=== PATIENT | female | born 2000 | race Caucasian/White ===

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

== ENCOUNTER 2020-11-27 15:58 | Emergency (ER) | payer OTHER, MEDICAID ==
[~2020-11-27] VITALS: Ht 165.1 cm; Wt 71.8 kg
[~2020-11-27 15:58] MED LIST changes: -ANEC4CRE3 TOP; -PREN1CHW4 PO
--- OUTSIDE RECORDS SUMMARY | 2020-11-27 16:12 | CCD ---
Author Author [facility] Organization [facility] Address Unknown Phone Unavailable Care Team Providers Care Blue Print Control Clerk Name Role Phone Macsherry, Michaela PIPE RECOVERY SPECIALIST Unavailable Unavailable Macsherry, Michaela PIPE RECOVERY SPECIALIST Unavailable Unavailable Macsherry, Michaela PIPE RECOVERY SPECIALIST Unavailable Unavailable Macsherry, Michaela PIPE RECOVERY SPECIALIST Unavailable Unavailable Macsherry, Michaela PIPE RECOVERY SPECIALIST Unavailable Unavailable Macsherry, Michaela PIPE RECOVERY SPECIALIST Unavailable Unavailable Macsherry, Michaela PIPE RECOVERY SPECIALIST Unavailable Unavailable Macsherry, Michaela PIPE RECOVERY SPECIALIST Unavailable Unavailable Macsherry, Michaela PIPE RECOVERY SPECIALIST Unavailable Unavailable Macsherry, Michaela PIPE RECOVERY SPECIALIST Unavailable Unavailable Macsherry, Michaela PIPE RECOVERY SPECIALIST Unavailable Unavailable Macsherry, Michaela PIPE RECOVERY SPECIALIST Unavailable Unavailable Macsherry, Michaela PIPE RECOVERY SPECIALIST Unavailable Unavailable Macsherry, Michaela PIPE RECOVERY SPECIALIST Unavailable Unavailable Macsherry, Michaela PIPE RECOVERY SPECIALIST Unavailable Unavailable Macsherry, Michaela PIPE RECOVERY SPECIALIST Unavailable Unavailable Macsherry, Michaela PIPE RECOVERY SPECIALIST Unavailable Unavailable Macsherry, Michaela PIPE RECOVERY SPECIALIST Unavailable Unavailable Macsherry, Michaela PIPE RECOVERY SPECIALIST Unavailable Unavailable Macsherry, Michaela PIPE RECOVERY SPECIALIST Unavailable Unavailable Macsherry, Michaela PIPE RECOVERY SPECIALIST Unavailable Unavailable Macsherry, Michaela PIPE RECOVERY SPECIALIST Unavailable Unavailable Macsherry, Michaela PIPE RECOVERY SPECIALIST Unavailable Unavailable Macsherry, Michaela PIPE RECOVERY SPECIALIST Unavailable Unavailable JORDAN, KADEN PA Unavailable Unavailable JORDAN, KADEN PA Unavailable Unavailable JORDAN, KADEN PA Unavailable Unavailable JORDAN, KADEN PA Unavailable Unavailable JORDAN, KADEN PA Unavailable Unavailable JORDAN, KADEN PA Unavailable Unavailable JORDAN, KADEN PA Unavailable Unavailable JORDAN, KADEN PA Unavailable Unavailable JORDAN, KADEN PA Unavailable Unavailable JORDAN, KADEN PA Unavailable Unavailable JORDAN, KADEN PA Unavailable Unavailable JORDAN, KADEN PA Unavailable Unavailable JORDAN, KADEN PA Unavailable Unavailable JORDAN, KADEN PA Unavailable Unavailable JORDAN, KADEN PA Unavailable Unavailable Re-disclosure Warning The records that you are about to access may contain information from federally-assisted alcohol or drug abuse programs. If such information is present, then the following federally mandated warning applies: This information has been disclosed to you from records protected by federal confidentiality rules (42 CFR part 2). The federal rules prohibit you from making any further disclosure of this information unless further disclosure is expressly permitted by the written consent of the person to whom it pertains or as otherwise permitted by 42 CFR part 2. A general authorization for the release of medical or other information is NOT sufficient for this purpose. The Federal rules restrict any use of the information to criminally investigate or prosecute any alcohol or drug abuse patient.The records that you are about to access may contain highly sensitive health information, the redisclosure of which is protected by Article 27-F of the [place] State Public Health law. If you continue you may have access to information: Regarding HIV / AIDS; Provided by facilities licensed or operated by the [facility] Office of Mental Health; or Provided by the [facility] Office for People With Developmental Disabilities. If such information is present, then the following [facility] mandated warning applies: This information has been disclosed to you from confidential records which are protected by state law. State law prohibits you from making any further disclosure of this information without the specific written consent of the person to whom it pertains, or as otherwise permitted by law. Any unauthorized further disclosure in violation of state law may result in a fine or residential sentence or both. A general authorization for the release of medical or other information is NOT sufficient authorization for further disc losure. Family History Family Member Name Family Member Gender Family Member Status Date o f Status Description Data Source(s) Unknown Unknown Problem MEDENT ([facility]) Unknown Female Problem MEDENT ([facility] ) Encounters Encounter Providers Location Date Indications Data Source(s ) Emergency Attender: KADEN Mayer: Janeht Hennessy PIPE RECOVERY SPECIALIST EMERGENCY ROOM-ER 09/22/2012 12:48:00 PM EST - 09/22/2012 02:38:00 PM [facility] Insurance Providers Payer name Policy type / Coverage type Policy ID Covered green party ID Covered green party's relationship to gastelum Policy Gastelum Plan Information SELF PAY ONLY [id number] SP [id number] MEDICAID [id number] S [id number] [facility] BENEFITS PLAN INC [id number] SP [id number] Managed Care [facility] Community Plan P [id number] S [id number] SELF PAY UNAVAILABLE S UNAVAILA BLE [facility] MEDICAID [id number] S [id number] MEDICAID [id number] SP [id number] [facility] PLAN [facility] [id number] SP [id number] [facility] Care - [facility] P [id number] S [id number] [facility]-Medicaid [id number] ANSI-Medicaid [id number] [facility] MEDICAID [id number] S [id number] [facility] MEDICAID [facility] HMO [id number] S [id number] [facility] MEDICAID [facility] [id number] S [id number] [facility]AN [facility] [id number] SP [id number] [facility] [id number] SP [id number] [facility] P [id number] S [id number] UNHC COMMUNITY PLAN MCDO [id number] SP [id number] [facility] Terry/MCR Health Maintenance Organization (HMO) [id number] Self [id number] Medicaid O [id number] S [id number] Managed Care [facility] O [id number] S [id number] Medicaid Dental S [id number] S [id number] Managed Care - Community Plan [facility] P [id number] S [id number] Medicaid S [id number] S [id number] [facility](MCAID) O [id number] S [id number] Pupil Benefits (pr) Commercial Medicaid [place] Medigap Part B Self [facility] Community Plan Commercial [id number] Self [id number] [facility]CAID) O [id number] S [id number] MEDICAID [id number] SP [id number] BCBS [facility] HMO [id number] S [id number] Medicaid P [id number] S [id number] UN COMMUNITY PLAN MCDO [id number] SP [id number] SELF PAY UNAVAILABLE SP UNAVAILA BLE
[2020-11-27] MEDS ORDERED: PREN1CHW4 PO (16:14)
[2020-11-27] MEDS ORDERED: ACETAMINOPHEN 500 MG TAB PO ONE (16:45)
[2020-11-27] MEDS ORDERED: LIDOCAINE 4% CREAM 5GM (LMX4) TOP ONE (16:45)
--- OUTSIDE RECORDS SUMMARY | 2020-11-27 17:28 | CCD ---
Author Author [facility] Organization [facility] Address Unknown Phone Unavailable Care Team Providers Care Manager Enrollment Name Role Phone Macsherry, Michaela MAT MAN Unavailable Unavailable Macsherry, Michaela MAT MAN Unavailable Unavailable Macsherry, Michaela MAT MAN Unavailable Unavailable Macsherry, Michaela MAT MAN Unavailable Unavailable Macsherry, Michaela MAT MAN Unavailable Unavailable Macsherry, Michaela MAT MAN Unavailable Unavailable Macsherry, Michaela MAT MAN Unavailable Unavailable Macsherry, Michaela MAT MAN Unavailable Unavailable Macsherry, Michaela MAT MAN Unavailable Unavailable Macsherry, Michaela MAT MAN Unavailable Unavailable Macsherry, Michaela MAT MAN Unavailable Unavailable Macsherry, Michalea MAT MAN Unavailable Unavailable Macsherry, Michaela MAT MAN Unavailable Unavailable Macsherry, Michaela MAT MAN Unavailable Unavailable Macsherry, Michaela MAT MAN Unavailable Unavailable Macsherry, Michaela MAT MAN Unavailable Unavailable Macsherry, Michaela MAT MAN Unavailable Unavailable Macsherry, Michaela MAT MAN Unavailable Unavailable Macsherry, Michaela MAT MAN Unavailable Unavailable Macsherry, Michaela MAT MAN Unavailable Unavailable Macsherry, Michaela MAT MAN Unavailable Unavailable Macsherry, Michaela MAT MAN Unavailable Unavailable Macsherry, Michaela MAT MAN Unavailable Unavailable Macsherry, Michaela MAT MAN Unavailable Unavailable JORDAN, KADEN PA Unavailable Unavailable [...] is protected by Article 27-F of the [place] State Public Health law. If you continue you may have access to information: Regarding HIV / AIDS; Provided by facilities licensed or operated by the [facility] Office of Mental Health; or Provided by the [facility] Office for People With Developmental Disabilities. If such information is present, then the following [facility] mandated warning applies: This information has [...] law may result in a fine or prison sentence or both. A general authorization for the release of medical or other information is NOT sufficient authorization for further disc losure. Family History Family Member Name Family Member Gender Family Member Status Date o f Status Description Data Source(s) Unknown Unknown Problem MEDENT ([facility]) Unknown Female Problem MEDENT ([facility] ) Encounters Encounter Providers Location Date Indications Data Source(s ) Emergency Attender: KADEN Mahoneyerrer: Janeth Hennessy NP EMERGENCY ROOM-ER 09/22/2012 12:48:00 PM EST - 09/22/2012 02:38:00 PM [facility] Insurance Providers Payer name Policy type / Coverage type Policy ID Covered republican ID Covered republican's relationship to gastelum Policy Gastelum Plan Information [employer]STATE INS CO NO FAULT [id number] SP [id number] SELF PAY ONLY [id number] SP [id number] MEDICAID [id number] S [id number] [facility] BENEFITS PLAN INC [id number] SP [id number] Managed Care [facility] Community Plan P [id number] S [id number] SELF PAY UNAVAILABLE S UNAVAILA BLE [facility] MEDICAID [id number] S [id number] MEDICAID [id number] SP [id number] [facility] COMMUNITY PLAN [facility] [id number] SP [id number] Managed Care - Community Plan [facility] P [id number] S [id number] ANSI-Medicaid [id number] ANSI-Medicaid [id number] [facility] MEDICAID [id number] S [id number] [facility] MEDICAID [facility] HMO [id number] S [id number] [facility] MEDICAID [facility] [id number] S [id number] [facility] COMMUNITY PLAN [facility] [id number] SP [id number] [facility] COMMUNITY PLAN [facility] [id number] SP [id number] Managed Care - Community Plan [facility] P [id number] S [id number] [employer] COMMUNITY PLAN MCDO [id number] SP [id number] [facility] Terry/MCR Health Maintenance Organization (HMO) [id number] Self [id number] Medicaid O [id number] S [id number] Managed Care [facility] O [id number] S [id number] Medicaid Dental S [id number] S [id number] Managed Care - Community Plan [facility] P [id number] S [id number] Medicaid S [id number] S [id number] [facility]) O [id number] S [id number] Pupil Benefits (pr) Commercial Medicaid [place] Medig[place] Part B Self c Community Plan Commercial [id number] Self [id number] [facility]) O [id number] S [id number] MEDICAID [id number] SP [id number] BCBS [facility] HMO [id number] S [id number] Medicaid P [id number] S [id number] UN COMMUNITY PLAN [facility] [id number] SP [id number] SELF PAY UNAVAILABLE SP UNAVAILA BLE
[2020-11-27 17:59] VITALS: BP 148/77
[2020-11-27] MEDS ORDERED: ANEC4CRE3 TOP (18:09)
== END 2020-11-27 18:15 | disposition home or self-care (01) ==
LOC: M ED 15:58
DX: O9A.212 Injury, poisoning and certain other consequences of external causes complicating pregnancy, second trimester (principal); V49.50XA Passenger injured in collision with unspecified motor vehicles in traffic accident, initial encounter; Y92.9 Unspecified place or not applicable; Y93.9 Activity, unspecified; Y99.9 Unspecified external cause status; Z3A.22 22 weeks gestation of pregnancy

== ENCOUNTER → 2020-11-27 | Outpatient (CLI) | payer MEDICAID, SELFPAY ==
[~2020-11-27] MED LIST changes: +ACET-897 PO; +ANEC4CRE3 TOP; +IBUP80TA PO; +PREN1CHW4 PO
--- NOTE | 2020-11-28 16:36 | REP ---
INDICATION: ANATOMY COMPARISON: None. TECHNIQUE: Transabdominal obstetrical ultrasound with color Doppler evaluation. FINDINGS: Examination demonstrates a single live intrauterine in variable presentation. motion is identified by technologist. Placenta is noted anterior and grade 1 without evidence for placenta previa or abruption. Amniotic fluid volume is normal. Cervix measures 3.5 cm in length and appears closed.. Gestational age by LMP 22 weeks 6 days with SARANYA 03/27/2021. Gestational age by current measurements 21 weeks 6 days with SARANYA 04/03/2021. FHR equals 149 beats per minute. BPD: 5.4 cm 22 weeks 3 days HC: 19.2 cm 21 weeks 3 days AC: 16.7 cm 21 weeks 5 days FL: 3.7 cm 21 weeks 6 days HL: 3.4 cm 21 weeks 4 days HC/AC: 1.15 Estimated weight 449 grams (less than 3rdpercentile based on age by LMP). Anatomical assessment demonstrates normal structures including cranium, choroid plexus, cavum, cerebellum/posterior fossa, facial features, lungs, four-chamber heart/ventricular outflow tracts, diaphragm, stomach, cord insertion/three-vessel cord, kidneys/bladder, spine, and extremities. IMPRESSION: Single live intrauterine in variable presentation. Estimated weight falls below 3rd percentile based on age by LMP. Anatomical assessment is complete and normal. <Electronically signed by Tee Rawls > 11/28/20 [id number]
== END ==
LOC: M WHC 12:44
PROVIDERS: ATTEND Specialist
DX: Z34.01 Encounter for supervision of normal first pregnancy, first trimester (principal); Z3A.21 21 weeks gestation of pregnancy

== ENCOUNTER → 2020-11-27 | Outpatient (REF) | payer MEDICAID, OTHER, SELFPAY ==
[2020-11-27 15:40] LABS: HEMATOCRIT 37.3 % (36.0-47.0); MEAN CORPUSCULAR HEMOGLOBIN 30.4 pg (27.0-33.0); MEAN CORPUSCULAR HGB CONC 32.2 g/dl (32.0-36.5); MEAN CORPUSCULAR VOLUME 94.4 fl (80.0-96.0); PLATELET COUNT, AUTOMATED 317 10^3/uL (150-450); RED BLOOD COUNT 3.95 10^6/uL (4.00-5.40); WHITE BLOOD COUNT 10.5 10^3/uL (4.0-10.0)
[2020-11-27 16:52] LABS: HEPATITIS C VIRUS ABY INDEX < 0.0 INDEX (<0.8); HIV 1&2 SCREEN CENTAUR NEGATIVE (NEGATIVE)
[2020-11-27 17:48] LABS: CHLAMYDIA DNA AMPLIFICATION NEGATIVE (NEGATIVE); GC DNA AMPLIFICATION NEGATIVE (NEGATIVE)
== END ==
LOC: M PLALAB 14:02
PROVIDERS: ATTEND Specialist
DX: Z34.01 Encounter for supervision of normal first pregnancy, first trimester (principal)

== ENCOUNTER → 2020-12-28 | Outpatient (CLI) | payer OTHER ==
[~2020-12-28] MED LIST changes: +ANEC4CRE3 TOP; +PREN1CHW4 PO
--- NOTE | 2020-12-28 19:03 | REP ---
INDICATION: GROWTH/BPP/CORD DOPPLERS COMPARISON: 11/27/2020 TECHNIQUE: Transabdominal obstetrical ultrasound with color Doppler evaluation. FINDINGS: Examination demonstrates a single live intrauterine in cephalic presentation. motion is identified by technologist. Placenta is noted anterior and grade 1 without evidence for placenta previa or abruption. Amniotic fluid volume is normal. Cervix measures 3.0 cm in length and appears closed.. Gestational age by LMP 27 weeks 2 days with SARANYA 03/27/2021. Gestational age by current measurements 26 weeks 1 day with SARANYA 04/04/2021. FHR equals 146 beats per minute. BPD: 6.7 cm at 26 weeks 6 days HC: 24.6 cm at 26 weeks 5 days AC: 22.4 cm at 26 weeks 6 days FL: 4.7 cm at 25 weeks 4 days HL: 4.2 cm at 25 weeks 1 day HC/AC: 1.10 Estimated weight 925 grams (11thpercentile). FRANCISCA: 16.5 cm Umbilical artery 1 SD ratio: 2.53 (2.15-4.46) Umbilical artery 2 SD ratio: 2.18 Anatomical assessment demonstrates normal facial profile, heart/ventricular outflow tracts, diaphragm, kidneys and bladder. IMPRESSION: Single live intrauterine in cephalic presentation demonstrating relatively normal interval growth. <Electronically signed by Tee Rawls > 12/28/20 [id number]
== END ==
LOC: M WHC 10:17
PROVIDERS: ATTEND Advanced Practice Midwife
DX: O36.5920 Maternal care for other known or suspected poor fetal growth, second trimester, not applicable or unspecified (principal); O99.322 Drug use complicating pregnancy, second trimester; Z3A.27 27 weeks gestation of pregnancy

== ENCOUNTER → 2020-12-28 | Outpatient (REF) | payer OTHER ==
[2020-12-28 14:22] LABS: HEMATOCRIT 36.2 % (36.0-47.0); HEMOGLOBIN 11.7 g/dl (12.0-15.5); MEAN CORPUSCULAR HEMOGLOBIN 30.2 pg (27.0-33.0); MEAN CORPUSCULAR HGB CONC 32.3 g/dl (32.0-36.5); MEAN CORPUSCULAR VOLUME 93.5 fl (80.0-96.0); PLATELET COUNT, AUTOMATED 324 10^3/uL (150-450); RED BLOOD COUNT 3.87 10^6/uL (4.00-5.40); WHITE BLOOD COUNT 10.2 10^3/uL (4.0-10.0)
== END ==
LOC: M PLALAB 11:11
PROVIDERS: ATTEND Advanced Practice Midwife
DX: O09.32 Supervision of pregnancy with insufficient antenatal care, second trimester (principal); Z3A.00 Weeks of gestation of pregnancy not specified

== ENCOUNTER → 2021-01-23 | Outpatient (CLI) | payer OTHER ==
--- NOTE | 2021-01-24 06:47 | REP ---
INDICATION: GROWTH/BPP/CORD DOPPLERS COMPARISON: 12/28/2020 TECHNIQUE: Transabdominal obstetrical ultrasound with color Doppler evaluation. FINDINGS: Examination demonstrates a single live intrauterine in cephalic presentation. motion is identified by technologist. Placenta is noted anterior and grade 2 without evidence for placenta previa or abruption. Amniotic fluid volume is normal. Cervix measures 2.9 cm in length and appears closed. A 1 cm round hyperechoic area within the placenta is nonspecific and may represent small transient hematoma. Gestational age by LMP and 1st ultrasound 31 weeks 0 days with SARANYA 03/27/2021. Gestational age by current measurements 30 weeks 0 days with SARANYA 04/03/2021. FHR equals 134 beats per minute. FRANCISCA: 16.0 cm (8.8-23.8) Biophysical profile score: 8/8 Umbilical artery SD ratio: 2.91 (1.90-3.98) Umbilical artery SD ratio: 2.26 (1.90-3.98) Estimated weight 1505 grams (14thpercentile). IMPRESSION: 1. Single live advanced gestation in cephalic presentation demonstrating appropriate estimated weight and growth. 2. A 1 cm hyperechoic focus within the placenta may represent small hematoma. <Electronically signed by Tee Rawls > 01/24/21 [id number]
== END ==
LOC: M WHC 15:15
PROVIDERS: ATTEND Advanced Practice Midwife
DX: O36.5930 Maternal care for other known or suspected poor fetal growth, third trimester, not applicable or unspecified (principal); O09.33 Supervision of pregnancy with insufficient antenatal care, third trimester; Z3A.31 31 weeks gestation of pregnancy

== ENCOUNTER 2021-02-10 15:10 | Outpatient (CLI) | payer OTHER ==
[~2021-02-10] VITALS: Ht 162.6 cm; Wt 73.5 kg
[2021-02-10 15:32] VITALS: BP 117/67
--- NOTE | 2021-02-10 16:03 | IPNPDOC ---
Obstetrical Progress Note Date of Service Feb 10, 2021 Subjective 20yo at 33+4 weeks EGA. Presents for a labor check. Reports frequent, painful uterine contractions. No loss of fluid or vaginal bleeding. Reports regular, frequent movement. ROS: No SPICER, visual changes, RUQ pain, sob, cp, n/v/f/c. complications: Late care, borderline growth restriction, 14th percentile PMH: none SH: Tonsillectomy OB: G1 LABORATORY APPARATUS GLASS GRINDER: No STI Meds: PNV All: NKDA O: Normotensive, normal HR, afebrile Abd: soft,nt,nd, no fundal tenderness SSE: Cervix is visually closed. No pooling fluid or fluid from os with Valsalva, negative nitrazine and ferning SVE: Cervix is closed, thick and long , cephalic, intact Ultrasound, limited: Cephalic presentation. Normal amniotic fluid volume, Maximum vertical Pocket 6 cm Urine dip: +ketones, neg nitrites EFM: Cat I / Reactive [place]: Contractions are not present A/P: 20 yo at 33+4 weeks EGA. No evidence of intra-amniotic infection, active labor or PP ROM. Reassuring maternal and status. Encouraged patient to hydrate more frequently (+ketones in urine) -Routine third trimester precautions given. -Follow up in office as scheduled. Yuval Link DO FACOG. ASHA LINK DO Feb 10, 2021 16:03
== END 2021-02-10 16:26 | disposition home or self-care (01) ==
LOC: M LDO 15:10
PROVIDERS: ATTEND Obstetrics & Gynecology
DX: O47.02 False labor before 37 completed weeks of gestation, second trimester (principal); Z3A.33 33 weeks gestation of pregnancy; O36.5993 Maternal care for other known or suspected poor fetal growth, unspecified trimester, fetus 3

== ENCOUNTER 2021-02-11 23:20 | Outpatient (CLI) | payer OTHER ==
[~2021-02-11] VITALS: Ht 162.6 cm; Wt 73.5 kg
[2021-02-11 23:35] VITALS: BP 121/66
--- NOTE | 2021-02-12 01:38 | IPNPDOC ---
Obstetrical Progress Note Date of Service Feb 12, 2021 Subjective 20yo at 33+5 weeks EGA. Presents for a labor check; arrived by ambulance. Reports lower pelvic discomfort but denies frequent, painful uterine contractions. No loss of fluid or vaginal bleeding. Reports regular, frequent movement. ROS: No SPICER, visual changes, RUQ pain, sob, cp, n/v/f/c. complications: Late care, borderline growth restriction, 14th percentile PMH: none SH: Tonsillectomy OB: G1 DIRECTOR OF MEDICAL REVIEW: No STI Meds: PNV All: NKDA O: Normotensive, normal HR, afebrile Abd: soft,nt,nd, no fundal tenderness SSE: Cervix is visually closed. No pooling fluid or fluid from os with Valsalva, negative nitrazine and ferning. No abnormal discharge or foul odor. SVE: Cervix is closed, thick and long , cephalic, intact Ultrasound, limited: Cephalic presentation. Normal amniotic fluid volume, Maximum vertical Pocket 6.2 cm TVUS,maradiaga: CL = 3.7cm with no funneling or dynamic changes. EFM: Cat I / Reactive [place]: Contractions are not present A/P: 20 yo at 33+5 weeks EGA. No evidence of intra-amniotic infection, active labor or PP ROM. Reassuring maternal and status. -Routine third trimester precautions given. -Follow up in office as scheduled. Yuval Link DO FACOG. ASHA LINK DO Feb 12, 2021 01:38
== END 2021-02-12 01:53 | disposition home or self-care (01) ==
LOC: M LDO 23:20
PROVIDERS: ATTEND Obstetrics & Gynecology
DX: O26.893 Other specified pregnancy related conditions, third trimester (principal); R10.2 Pelvic and perineal pain; Z3A.33 33 weeks gestation of pregnancy

== ENCOUNTER → 2021-02-21 | Outpatient (CLI) | payer OTHER ==
--- NOTE | 2021-02-21 13:55 | REP ---
INDICATION: BPP/GROWTH/CORD DOPPLERS. BPP/GROWTH/CORD DOPPLERS. Intrauterine growth restriction. Late care. Established SARANYA 27 Mar 2021. COMPARISON: Comparison study January 23, 2021.. TECHNIQUE: Transabdominal obstetric sonography. FINDINGS: Scanning demonstrates a viable single intrauterine gestation in a cephalic lie. motion is observed and heart rate is recorded at 115 beats per minute. An anterior, grade zero placenta is seen without evidence of previa. Amniotic fluid is subjectively normal. Closed cervical length is measured at 3.0 cm transabdominally. No extrauterine abnormality is observed. There has been appropriate interval growth. FRANCISCA normal 12.6 cm. Biophysical profile score 8 out of a possible 8. SD ratio in the umbilical cord artery by Doppler normal 2.38. Biometry chart: BPD 8.7 cm; 35 weeks 1 days Head circumference 30.8 cm; 34 weeks 3 days Abdominal circumference 29.4 cm; 33 weeks 3 days Femur length 6.2 cm; 32 weeks 1 days Humeral length 5.6 cm; 32 weeks 4 days HC/AC ratio normal 1.05 Cephalic index normal 0.8 Estimated weight 2160 grams, 4 pounds 12 ounces, less than 3rd percentile for 35 weeks 1 days. IMPRESSION: Viable single intrauterine gestation at 33 weeks 4 days by today's composite sonographic criteria. Expected gestational age estimate based on prior sonography is 35 weeks is 1 days. SARANYA by prior sonography March 27, 2021. Estimated weight less than 3rd percentile for 35 weeks 1 day. <Electronically signed by Efren Ramos > 02/21/21 0049
== END ==
LOC: M WHC 10:13
PROVIDERS: ATTEND Advanced Practice Midwife
DX: O09.32 Supervision of pregnancy with insufficient antenatal care, second trimester (principal)

== ENCOUNTER → 2021-02-22 | Outpatient (CLI) | payer OTHER | LOC: M WHC 14:19 | PROVIDERS: ATTEND Obstetrics & Gynecology | DX: Z36.89 Encounter for other specified antenatal screening (principal) ==

== ENCOUNTER → 2021-02-26 | Outpatient (REF) | payer OTHER | LOC: M SFHCWAGY 13:18 | PROVIDERS: ATTEND Obstetrics & Gynecology | DX: O36.5930 Maternal care for other known or suspected poor fetal growth, third trimester, not applicable or unspecified (principal) ==

== ENCOUNTER → 2021-02-28 | Outpatient (CLI) | payer OTHER ==
--- NOTE | 2021-02-28 14:13 | REP ---
INDICATION: IUGR,BPP. COMPARISON: 02/21/2021 TECHNIQUE: Transabdominal, limited Ob ultrasound was requested to obtain biophysical profile. FINDINGS: Multiple ultrasonographic images of the gravid uterus shows a single living intrauterine gestation in the cephalic presentation. Doppler interrogation of the heart shows a heart rate of 140 beats per minute. The placenta is anterior and not low lying. The subjective amniotic fluid volume is within normal limits. Doppler interrogation of the umbilical artery shows an AB ratio of 2.14 and 2.46 both within the normal range. biophysical profile score is 2 for breathing, 2 for tone, 2 for movement, and 2 for amniotic fluid volume giving a sum total of 8/8. The calculated amniotic fluid index is 15.9 within expected range 7.7 to 24.8. IMPRESSION: Limited OB ultrasound as described above. <Electronically signed by Alexander Emerson > 02/28/21 [id number]
== END ==
LOC: M WHC 11:45
PROVIDERS: ATTEND Obstetrics & Gynecology
DX: O36.5930 Maternal care for other known or suspected poor fetal growth, third trimester, not applicable or unspecified (principal); Z3A.35 35 weeks gestation of pregnancy

== ENCOUNTER → 2021-03-01 | Outpatient (CLI) | payer OTHER | LOC: M LABSMTC 12:21 | PROVIDERS: ATTEND Specialist | DX: Z11.52 Encounter for screening for COVID-19 (principal) ==

== ENCOUNTER 2021-03-06 08:48 | Inpatient (IN) | payer OTHER ==
[~2021-03-06] VITALS: Ht 162.6 cm; Wt 75.3 kg
[2021-03-06] VITALS (13 sets, daily range): BP systolic 114–145; BP diastolic 60–85
[2021-03-06] MEDS ORDERED: PRENTAB9 PO (09:08)
[2021-03-06] MEDS ORDERED: ACET325C5 PO (09:08)
[2021-03-06] MEDS ORDERED: LACTATED RINGER'S 1000 ML IV STA (10:43)
[2021-03-06] MEDS ORDERED: METHYLERGONOVINE MALEATE 0.2 MG/ML VIAL (J2210) IM PRN (10:45)
[2021-03-06] MEDS ORDERED: OXYTOCIN DRIP 30 UNITS in IV 1 EA IV PRN (10:45)
[2021-03-06 11:23] LABS: HEMOGLOBIN 10.3 g/dl (12.0-15.5); MEAN CORPUSCULAR HEMOGLOBIN 27.5 pg (27.0-33.0); MEAN CORPUSCULAR HGB CONC 31.2 g/dl (32.0-36.5); MEAN CORPUSCULAR VOLUME 88.2 fl (80.0-96.0); PLATELET COUNT, AUTOMATED 273 10^3/uL (150-450); RED BLOOD COUNT 3.74 10^6/uL (4.00-5.40)
[2021-03-06] MEDS ORDERED: BUTORPHANOL 2 MG/ML INJ (J0595) IV PRN (11:25)
[2021-03-06] MEDS ORDERED: miSOPROStol 50MCG 1/2 TABLET PV ONE (11:30)
[2021-03-06] MEDS ORDERED: miSOPROStol 50MCG 1/2 TABLET PO SCH (15:30)
[2021-03-06] MEDS ORDERED: OXYTOCIN DRIP 30 UNITS in IV 1 EA IV SCH (18:35)
--- NOTE | 2021-03-06 19:30 | HPEPDOC ---
Obstetrical History & Physical General Date of Admission Mar 06, 2021 at 08:48 History of Present Illness Deysi is a 20yo with SIUP at 37w0d by lmp c/w 2nd trimester u/s presenting for scheduled induction of labor for IUGR. She was previously noted to have IUGR with <3%ile measurement in November. In December, growth increased to 11%ile. In January, 14%ile. In February, <3%ile again. She was receiving BPPs with frequent office visits to monitor the IUGR and she was counseled on IOL at 37wk. She feels well today, has good movement. No LOF/VB/ctx. 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 History: No pertinent history Past Medical History Medical History hospitalized for pneumonia in 2000, MVP is documented on her chart but I have no supporting documentation, Surgical History: Tonsilectomy Family History Significant Family History: No pertinent family hx Social History Marital Status: Other (life partner) Family situation: Spouse/partner home Psychosocial History: No pertinent psych hx * Smoker: non-smoker Alcohol: Denies Drugs: denies Imunizations Tdap status: declined Influenza Status: declined Allergies Coded Allergies: No Known Allergies (Verified , 05/01/17) Medications Scheduled No.137/Iron/Folic Acd ( Vitamin Tablet) 1 Each Tablet, 1 TAB PO DAILY Miscellaneous Medications Acetaminophen (Tylenol) 325 Mg Capsule, 325 MG PO Physical Examination Physical Examination GENERAL: Alert and oriented times three. ABDOMEN: Gravid and non-tender to touch. FETUS: Is vertex (VTX) by sterile vaginal examination (SVE) and bedside TAUS EXTREMITIES: No edema BLE Vital Signs/I&O Vital Signs Date Time Temp Pulse Resp B/P (MAP) Pulse Ox O2 Delivery O2 Flow Rate FiO2 03/06/21 18:51 107 128/70 (89) 03/06/21 16:00 98.7 03/06/21 09:52 16 Laboratory Data 24H LABS Laboratory Tests 2 03/06/21 08:57: Serology Scanned Report Hepatitis B Testing 03/06/21 11:11: Nucleated Red Blood Cells % (auto) 0.0, Syphilis Serology NONREACTIVE CBC/BMP Laboratory Tests 03/06/21 11:11 Pertinent Laboratoy Data Blood Type: A+ RBC Antibody Screen: Negative HIV: Negative Hepatitis B: Negative Hepatitis C: Negative Rapid Plasma Reagin: Nonreactive Rubella: Immune Chlamydia/Gonorrhea: Negative Group B Streptococcus: Negative Glucose Tolerance Test: 104 Anatomy Ultrasound Ultrasound Date: Nov 27, 2020 Placenta Location: Anterior Normal Anatomy: Yes (<3%ile) Placenta Previa: No Other Ultrasounds 02/21: BPP 8/8, <3%ile ([id number]) Steroid Therapy Steroid Therapy: No Vaginal Examination Dilation: 1cm Effacement: 50% Station: -2 Cervical Consistency: Medium Cervical Position: Middle Presentation: Cephalic presentation Assessment Heart Rate (FHR): 140 Variability: Moderate Accelerations: Positive Decelerations: None Tocometer Contractions: No Assessment/Plan Assessment Deysi is a 20yo with SIUP at 37w0d by lmp c/w 2nd trimester u/s presenting for scheduled induction of labor for IUGR, <3%ile. Vitals wnl, benign exam. Cat I FHRT. Ceph by HAZEL. SCE /. Boyd cervical bulb placed with 40 cc NS and 50mcg cytotec PV. Plan Admit and orient. Psychological Anthropologist and consent. Diet: regular until labor, then clear liquids Group B Streptococcus (GBS) negative Labs and intravenous (IV) per unit protocol. Counseled on boyd bulb, cytotec, Pitocin and induction of labor (IOL). Lactated Ringers (LR): In anticipation of epidural, Bolus 800 mL, then at 125 mL/hr (prior to that PO hydration) Anticipate normal spontaneous delivery () Candidate for epidural in active labor, IV pain meds in latent labor Rupal Pereyra MD Mar 06, 2021 19:16
[2021-03-06] MEDS ORDERED: PROMETHAZINE INJ 25 MG/ML VIAL (J2550) IM ONE (20:15)
[2021-03-06] MEDS: LR 1,000 ML IV SCH (20:25)
[2021-03-07] VITALS (39 sets, daily range): BP systolic 85–140; BP diastolic 49–88
[2021-03-07] MEDS ORDERED: FENTANYL 2MCG/ML ROPIVACAINE 0.2% IN 0.9% NACL 100ML IVBAG As Ordered ONE (02:21)
[2021-03-07] MEDS ORDERED: EPIDURAL/PCA KEYS XX PRN (03:33)
[2021-03-07] MEDS ORDERED: REFRIGERATOR IV KEYS XX PRN (03:33)
[2021-03-07] MEDS ORDERED: FENTANYL/ROPIVACAINE/NACL BAG 100 ML EPIDURAL SCH (03:33)
[2021-03-07] MEDS ORDERED: NALOXONE INJ 0.4MG/1ML VIAL (J2310 PER 1MG) IV PRN (03:33)
[2021-03-07] MEDS ORDERED: ONDANSETRON 4MG/2ML VIAL IV PRN (03:33)
[2021-03-07] MEDS ORDERED: EPIDURAL COMMENT XX SCH (03:33)
[2021-03-07] MEDS ORDERED: ePHEDrine SULFATE 25 MG/5 ML(5MG/ML) SYRINGE IV PRN (03:33)
[2021-03-07] MEDS ORDERED: diphenhydrAMINE 50MG/ML VIAL (J1200) IV PRN (03:33)
[2021-03-07] MEDS ORDERED: LACTATED RINGER'S 1000 ML IV PRN (03:33)
[2021-03-07] MEDS: LR 1,000 ML IV SCH (11:37)
[2021-03-07] MEDS ORDERED: OXYTOCIN INJ 10 UNITS/ML VIAL (J2590) As Ordered ONE (13:48)
[2021-03-07] MEDS ORDERED: OXYTOCIN INJ 10 UNITS/ML VIAL (J2590) IM ONE (14:00)
[2021-03-07] MEDS ORDERED: MEASLES,MUMPS,RUBELLA VACCINE INJ (MMR-II) (90707) SC SCH (14:00)
[2021-03-07] MEDS ORDERED: DIBUCAINE 1% OINTMENT 30GM TOP PRN (14:00)
[2021-03-07] MEDS ORDERED: RHOGAM 300 MCG (1500 IU) INJ (J2790) IM SCH (14:00)
[2021-03-07] MEDS ORDERED: DOCUSATE SODIUM 100MG CAPSULE PO PRN (14:00)
[2021-03-07] MEDS ORDERED: METHYLERGONOVINE MALEATE 0.2 MG TAB PO PRN (14:00)
[2021-03-07] MEDS ORDERED: ACETAMINOPHEN 500 MG TAB PO PRN (14:00)
[2021-03-07] MEDS ORDERED: ACETAMINOPHEN TAB 650MG DOSE (2X325MG) PO PRN (14:00)
[2021-03-07] MEDS ORDERED: IBUPROFEN 800 MG TAB PO PRN (14:00)
[2021-03-07] MEDS ORDERED: IBUPROFEN 600MG TAB PO PRN (14:00)
--- NOTE | 2021-03-07 14:39 | DN ---
DELIVERY NOTE DATE OF DELIVERY: 03/07/2021 TIME OF : 1332 GENDER: Male. APGARS: 8 and 8. LACERATIONS: Second-degree midline. ANESTHESIA: Epidural. ESTIMATED BLOOD LOSS: 300 mL. COUNTS: Correct and verified. DESCRIPTION OF DELIVERY: Deysi is a 20-year-old 1, para 1-0-0-1 now, who was admitted to labor and delivery for induction of labor due to IUGR. She did reach full dilation at 1308. She pushed to a normal spontaneous vaginal delivery of a live male infant in occiput anterior (OA) position with restitution to right occiput transverse (ROT) position at 1332. There was a nuchal cord x1 loose that was reduced at the time of delivery. The shoulders delivered spontaneously and the corpus immediately followed. The 's mouth and nares were bulb suctioned and he was placed on the maternal abdomen crying and active. The cord was clamped x2 once pulsations ceased and cut by the father of the baby under my direction. There was a spontaneous expulsion of an intact placenta with three-vessel cord by Gonzales mechanism at 1340. Uterine hemostasis achieved with uterine fundal massage and Pitocin 10 units IM. Estimated blood loss 300 mL. Perineum and vagina inspected noted to have a small second-degree midline laceration that was repaired with 3-0 Vicryl Rapide in the usual fashion under epidural anesthesia. The male weight 2712 grams or 6 pounds. Apgars 8 and 8. He has been transferred to the intensive care unit just for observation at this point. Family have named him Virgil. He is going to be formula fed. At the close of delivery, lap counts, needle counts, and instrument counts were correct and verified.
[2021-03-08 06:00] VITALS: BP 110/62
[2021-03-08] MEDS ORDERED: PRENATAL VITAMINS CHEWABLE TABLET PO SCH (09:00)
[2021-03-08] MEDS ORDERED: ACET-683 PO (09:11)
[2021-03-08] MEDS ORDERED: IBUP80TA PO (09:11)
== END 2021-03-08 10:50 | disposition home or self-care (01) | DRG 560 ==
LOC: M LDI 08:48 → M OBS 03-07 18:21
PROVIDERS: ADMIT Obstetrics & Gynecology; ATTEND Advanced Practice Midwife
PROC: 3E0P7GC Introduction of Other Therapeutic Substance into Female Reproductive, Via Natural or Artificial Opening (ICD-10-PCS; 2021-03-06)
PROC: 10E0XZZ Delivery of Products of Conception, External Approach (ICD-10-PCS; principal; 2021-03-07)
PROC: 0KQM0ZZ Repair Perineum Muscle, Open Approach (ICD-10-PCS; 2021-03-07)
DX: O36.5930 Maternal care for other known or suspected poor fetal growth, third trimester, not applicable or unspecified (principal); Z3A.37 37 weeks gestation of pregnancy; O69.81X0 Labor and delivery complicated by cord around neck, without compression, not applicable or unspecified; O70.1 Second degree perineal laceration during delivery; Z37.0 Single live birth

== ENCOUNTER 2021-06-14 18:43 | Emergency (ER) | payer OTHER ==
[~2021-06-14] VITALS: Ht 162.6 cm; Wt 69.1 kg
[2021-06-14 18:43] VITALS: BP 131/74
[~2021-06-14 18:43] MED LIST changes: +ACET-683 PO; +ACET325C5 PO; +PRENTAB9 PO
== END 2021-06-14 20:45 | disposition left against medical advice (07) ==
LOC: M ED 18:43
DX: Z53.21 Procedure and treatment not carried out due to patient leaving prior to being seen by health care provider (principal)

== ENCOUNTER 2021-08-14 17:38 | Emergency (ER) | payer OTHER ==
[~2021-08-14] VITALS: Ht 165.1 cm; Wt 68.9 kg
[2021-08-14 22:00] LABS: BASO % 0.3 % (0.0-1.0); EOS # 0.1 10^3/uL (0.0-0.5); EOS % 1.3 % (0.0-3.0); HEMATOCRIT 40.3 % (36.0-47.0); HEMOGLOBIN 12.8 g/dl (12.0-15.5); LYMPH # 1.9 10^3/uL (1.5-5.0); LYMPH % 18.1 % (24.0-44.0); MEAN CORPUSCULAR HEMOGLOBIN 28.6 pg (27.0-33.0); MEAN CORPUSCULAR HGB CONC 31.8 g/dl (32.0-36.5); MEAN CORPUSCULAR VOLUME 90.2 fl (80.0-96.0); MONO % 8.9 % (2.0-8.0); NEUTROPHILS # 7.6 10^3/uL (1.5-8.5); PLATELET COUNT, AUTOMATED 336 10^3/uL (150-450); RED BLOOD COUNT 4.47 10^6/uL (4.00-5.40); WHITE BLOOD COUNT 10.6 10^3/uL (4.0-10.0)
[2021-08-14] MEDS ORDERED: KETOROLAC 30 MG/ML 1ML VIAL IV ONE (22:10)
[2021-08-14 22:22] LABS: ALBUMIN 3.6 GM/DL (3.2-5.2); ALT/SGPT 23 U/L (12-78); BILIRUBIN,TOTAL 0.6 MG/DL (0.2-1.0); BLOOD UREA NITROGEN 8 MG/DL (7-18); C REACTIVE PROTEIN QUANTITATIV 6.11 MG/DL (0.00-0.30); CALCIUM LEVEL 9.1 MG/DL (8.5-10.1); CARBON DIOXIDE LEVEL 29 MEQ/L (21-32); CHLORIDE LEVEL 108 MEQ/L (98-107); CREATININE FOR GFR 0.62 MG/DL (0.55-1.30); GLOMERULAR FILTRATION RATE > 60.0 (>60); GLUCOSE, FASTING 90 MG/DL (70-100); POTASSIUM SERUM 3.9 MEQ/L (3.5-5.1); SODIUM LEVEL 140 MEQ/L (136-145); TOTAL PROTEIN 7.2 GM/DL (6.4-8.2)
[2021-08-14 22:30] LABS: ERYTHROCYTE SEDIMENTATION RATE 46 mm/hr (0-20)
[2021-08-14] MEDS ORDERED: ISOVUE-370 76% 100ML VIAL As Ordered ONE (22:41)
--- NOTE | 2021-08-15 00:26 | REPVR ---
PROCEDURE INFORMATION: Exam: CT Neck With Contrast Exam date and time: 08/14/2021 11:01 PM Age: 21 years old Clinical indication: Mass, lump, or swelling in neck; Bilateral; Additional info: Facial swelling, neck swelling, trismus TECHNIQUE: Imaging protocol: Computed tomography images of the neck with contrast. Radiation optimization: All CT scans at this facility use at least one of these dose optimization techniques: automated exposure control; mA and/or kV adjustment per patient size (includes targeted exams where dose is matched to clinical indication); or iterative reconstruction. Contrast material: ISOVUE 370; Contrast volume: 75 ml; Contrast route: INTRAVENOUS (IV); COMPARISON: No relevant prior studies available. FINDINGS: Paranasal sinuses: Patchy ethmoid sinus disease. Mild mucosal thickening in the floor of the maxillary sinuses. Nasopharynx: Unremarkable. Oral Cavity: Ill-defined subperiosteal abscess along the left lingual plate measuring 2.2 x 1.1 x 2.0 cm. Tongue is mildly deviated to the right. Dental: Multiple dental fillings with associated beam hardening artifact. Multiple dental cavities. There is periapical abscesses of the bilateral lower molar teeth. Oropharynx: Unremarkable. No significant tonsillar enlargement. Hypopharynx: Unremarkable. Larynx: Unremarkable. Normal epiglottis. Retropharyngeal space: Unremarkable. Submandibular/Parotid glands: Normal. Glands are normal in size. Thyroid: Normal. No enlarged or calcified nodules. Lymph nodes: There are mildly enlarged left submandibular nodes. Trachea: Visualized trachea is unremarkable. Lungs: Unremarkable as visualized. 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 No acute fracture. Soft tissues: Inflammatory changes in the left submandibular region. No soft tissue gas. IMPRESSION: 1. Ill-defined subperiosteal abscess along the left lingual plate. Likely secondary to periodontal disease. 2. Periapical abscesses of the bilateral lower molar teeth. 3. Multiple dental cavities. 4. Patchy sinus disease. Electronically signed by: Claudia Crisostomo On 08/15/2021 00:26:18 AM
[2021-08-15] MEDS ORDERED: dexameTHASONE 20MG/5ML VIAL (J1100 PER 1MG) IV ONE (01:05)
[2021-08-15] MEDS ORDERED: AMPICILLIN SOD/SULBACTAM SOD 3 GM in D5W MINI-BAG PLUS 100 ML IV ONE (01:05)
[2021-08-15 02:04] VITALS: BP 121/69
== END 2021-08-15 02:07 | disposition home or self-care (01) ==
LOC: M ED 17:38
DX: K04.7 Periapical abscess without sinus (principal); K02.9 Dental caries, unspecified; R59.0 Localized enlarged lymph nodes
CPT/HCPCS: 70491; 80053; 84702; 85025; 85652; 86140; 96365; 96375; 99284; J1100; J1885; Q9967; U0002

== ENCOUNTER 2021-08-20 10:46 | Emergency (ER) | payer OTHER ==
[~2021-08-20] VITALS: Ht 165.1 cm; Wt 67.6 kg
[2021-08-20] MEDS ORDERED: NS 1,000 ML IV ONE (11:55)
[2021-08-20 12:14] LABS: BASO # 0.1 10^3/uL (0.0-0.2); BASO % 0.4 % (0.0-1.0); EOS # 0.3 10^3/uL (0.0-0.5); EOS % 1.5 % (0.0-3.0); HEMATOCRIT 42.6 % (36.0-47.0); HEMOGLOBIN 13.7 g/dl (12.0-15.5); LYMPH # 1.5 10^3/uL (1.5-5.0); MEAN CORPUSCULAR HGB CONC 32.2 g/dl (32.0-36.5); MEAN CORPUSCULAR VOLUME 90.1 fl (80.0-96.0); MONO # 1.3 10^3/uL (0.0-0.8); MONO % 8.1 % (2.0-8.0); NEUTROPHILS # 13.4 10^3/uL (1.5-8.5); NEUTROPHILS % 80.3 % (36.0-66.0); PLATELET COUNT, AUTOMATED 460 10^3/uL (150-450); RED BLOOD COUNT 4.73 10^6/uL (4.00-5.40); WHITE BLOOD COUNT 16.6 10^3/uL (4.0-10.0)
[2021-08-20 12:36] LABS: ALBUMIN 3.6 GM/DL (3.2-5.2); BILIRUBIN,DIRECT 0.2 MG/DL (0.0-0.2); BILIRUBIN,TOTAL 0.7 MG/DL (0.2-1.0); C REACTIVE PROTEIN QUANTITATIV 7.45 MG/DL (0.00-0.30); TOTAL PROTEIN 7.4 GM/DL (6.4-8.2)
[2021-08-20 12:49] LABS: ERYTHROCYTE SEDIMENTATION RATE 48 mm/hr (0-20)
[2021-08-20] MEDS ORDERED: dexameTHASONE 20MG/5ML VIAL (J1100 PER 1MG) IV ONE (12:55)
[2021-08-20] MEDS ORDERED: KETOROLAC 30 MG/ML 1ML VIAL IV ONE (12:55)
[2021-08-20] MEDS ORDERED: CLINDAMYCIN 900 MG in IV 1 EA IV ONE (12:55)
[2021-08-20] MEDS ORDERED: ISOVUE-370 76% 100ML VIAL As Ordered ONE (12:56)
--- NOTE | 2021-08-20 13:49 | REPVR ---
PROCEDURE INFORMATION: Exam: CT Neck With Contrast Exam date and time: 08/20/2021 12:58 PM Age: 21 years old Clinical indication: Mass, lump, or swelling in neck; Left; Additional info: R/O abcess TECHNIQUE: Imaging protocol: Computed tomography images of the neck with contrast. Radiation optimization: All CT scans at this facility use at least one of these dose optimization techniques: automated exposure control; mA and/or kV adjustment per patient size (includes targeted exams where dose is matched to clinical indication); or iterative reconstruction. Contrast material: ISOVUE 370; Contrast volume: 75 ml; Contrast route: INTRAVENOUS (IV); COMPARISON: CT Neck with contrast 08/14/2021 10:44 PM FINDINGS: Paranasal sinuses: Bilateral maxillary and ethmoid sinusitis is present. There is mild mucosal thickening in the sphenoid sinus. Nasopharynx: Unremarkable. Oropharynx: No tonsillar abscess. Extensive dental disease is present. Hypopharynx: Unremarkable. Larynx: Unremarkable. Normal epiglottis. Retropharyngeal space: Unremarkable. Submandibular/Parotid glands: Normal. Glands are normal in size. Thyroid: Normal. No enlarged or calcified nodules. Lymph nodes: Several enlarged left submandibular and left cervical chain lymph nodes are present. Trachea: Visualized trachea is unremarkable. Lungs: Unremarkable as visualized. Bones/joints: Unremarkable. No acute fracture. Soft tissues: There is an enlarging abscess along the inferior margin of the posterior left mandible. The abscess currently measures approximately 3.9 x 3.3 x 2.9 cm (previously 2.6 x 1.6 x 2.0 cm). Extensive surrounding inflammation and edema is present. The infection is likely related to adjacent dental disease. A periapical abscess is seen around the left mandibular 2nd molar tooth. Minor erosion of the medial cortex of the mandible adjacent to the periapical abscess is present. IMPRESSION: Enlarging abscess along the inferior margin of the posterior left mandible Electronically signed by: Daniel Wiley On 08/20/2021 13:49:13 PM
[2021-08-20] MEDS ORDERED: HOME MED LIST COMPLETE! XX SCH (14:15)
[2021-08-20] MEDS ORDERED: AMOX500C PO (14:15)
[2021-08-20] MEDS ORDERED: IBUP-1022 PO (14:15)
[2021-08-20] MEDS ORDERED: AMPICILLIN SOD/SULBACTAM SOD 3 GM in D5W MINI-BAG PLUS 100 ML IV ONE (14:55)
[2021-08-20 15:19] LABS: RSV AMPLIFICATION NEGATIVE (NEGATIVE)
[2021-08-20 16:39] VITALS: BP 116/59
== END 2021-08-20 16:40 | disposition home or self-care (01) ==
LOC: M ED 10:46
DX: K04.7 Periapical abscess without sinus (principal); M27.2 Inflammatory conditions of jaws; S02.5XXA Fracture of tooth (traumatic), initial encounter for closed fracture; X58.XXXA Exposure to other specified factors, initial encounter; Y92.89 Other specified places as the place of occurrence of the external cause; Z87.820 Personal history of traumatic brain injury; Z79.2 Long term (current) use of antibiotics
CPT/HCPCS: 70491; 80047; 80076; 83605; 84702; 85025; 85652; 86140; 87040; 87631; 96365; 96366; 96367; 96375; 99284; J1100; J1885; Q9967

== ENCOUNTER → 2022-01-14 | Outpatient (CLI) | payer OTHER ==
[~2022-01-14] MED LIST changes: +AMOX500C PO; +IBUP-1022 PO
== END ==
LOC: M SOG 12:06
PROVIDERS: ATTEND Orthopaedic Surgery
DX: M25.512 Pain in left shoulder (principal)

== ENCOUNTER → 2022-04-16 | Outpatient (REF) | payer OTHER ==
[2022-04-16 16:33] LABS: BASO # 0.1 10^3/uL (0.0-0.2); BASO % 0.7 % (0.0-1.0); EOS # 0.2 10^3/uL (0.0-0.5); EOS % 2.1 % (0.0-3.0); HEMATOCRIT 45.1 % (36.0-47.0); HEMOGLOBIN 14.5 g/dl (12.0-15.5); LYMPH # 1.8 10^3/uL (1.5-5.0); LYMPH % 24.9 % (24.0-44.0); MEAN CORPUSCULAR HEMOGLOBIN 29.7 pg (27.0-33.0); MEAN CORPUSCULAR HGB CONC 32.2 g/dl (32.0-36.5); MEAN CORPUSCULAR VOLUME 92.4 fl (80.0-96.0); MONO # 0.5 10^3/uL (0.0-0.8); MONO % 6.7 % (2.0-8.0); NEUTROPHILS # 4.6 10^3/uL (1.5-8.5); NEUTROPHILS % 64.5 % (36.0-66.0); PLATELET COUNT, AUTOMATED 255 10^3/uL (150-450); RED BLOOD COUNT 4.88 10^6/uL (4.00-5.40); WHITE BLOOD COUNT 7.2 10^3/uL (4.0-10.0)
[2022-04-16 17:13] LABS: ALBUMIN 4.3 GM/DL (3.2-5.2); ALT/SGPT 21 U/L (12-78); BILIRUBIN,TOTAL 0.4 MG/DL (0.2-1.0); BLOOD UREA NITROGEN 9 MG/DL (7-18); CALCIUM LEVEL 10.1 MG/DL (8.5-10.1); CARBON DIOXIDE LEVEL 26 MEQ/L (21-32); CHLORIDE LEVEL 109 MEQ/L (98-107); CREATININE FOR GFR 0.68 MG/DL (0.55-1.30); GLOMERULAR FILTRATION RATE > 60.0 (>60); GLUCOSE, FASTING 86 MG/DL (70-100); POTASSIUM SERUM 4.7 MEQ/L (3.5-5.1); SODIUM LEVEL 143 MEQ/L (136-145); TOTAL PROTEIN 7.8 GM/DL (6.4-8.2)
[2022-04-16 17:23] LABS: HCG, SERUM QUALITATIVE NEGATIVE (NEGATIVE)
== END ==
LOC: M SFHCCAPE 13:53
PROVIDERS: ATTEND Physician Assistant
DX: N91.2 Amenorrhea, unspecified (principal)

== ENCOUNTER 2022-06-04 14:06 | Emergency (ER) | payer OTHER ==
[~2022-06-04] VITALS: Ht 165.1 cm; Wt 73.1 kg
[2022-06-04] MEDS ORDERED: PREN1CHW6 PO (14:55)
[2022-06-04 16:01] LABS: BASO % 0.3 % (0.0-1.0); EOS # 0.2 10^3/uL (0.0-0.5); EOS % 1.6 % (0.0-3.0); HEMATOCRIT 40.7 % (36.0-47.0); HEMOGLOBIN 13.4 g/dl (12.0-15.5); LYMPH # 1.5 10^3/uL (1.5-5.0); LYMPH % 11.8 % (24.0-44.0); MEAN CORPUSCULAR HEMOGLOBIN 29.3 pg (27.0-33.0); MEAN CORPUSCULAR HGB CONC 32.9 g/dl (32.0-36.5); MEAN CORPUSCULAR VOLUME 89.1 fl (80.0-96.0); MONO # 0.7 10^3/uL (0.0-0.8); MONO % 5.4 % (2.0-8.0); NEUTROPHILS # 10.4 10^3/uL (1.5-8.5); NEUTROPHILS % 80.6 % (36.0-66.0); PLATELET COUNT, AUTOMATED 289 10^3/uL (150-450); RED BLOOD COUNT 4.57 10^6/uL (4.00-5.40); WHITE BLOOD COUNT 12.8 10^3/uL (4.0-10.0)
[2022-06-04 16:30] LABS: HCG, SERUM QUALITATIVE POSITIVE (NEGATIVE)
[2022-06-04 16:38] LABS: ALT/SGPT 12 U/L (12-78); BLOOD UREA NITROGEN 10 MG/DL (7-18); CALCIUM LEVEL 9.7 MG/DL (8.5-10.1); CARBON DIOXIDE LEVEL 23 MEQ/L (21-32); CHLORIDE LEVEL 108 MEQ/L (98-107); CREATININE FOR GFR 0.53 MG/DL (0.55-1.30); GLOMERULAR FILTRATION RATE > 60.0 (>60); GLUCOSE, FASTING 84 MG/DL (70-100); POTASSIUM SERUM 4.4 MEQ/L (3.5-5.1); SODIUM LEVEL 139 MEQ/L (136-145)
[2022-06-04 16:39] LABS: ALBUMIN 3.8 GM/DL (3.2-5.2); BILIRUBIN,DIRECT 0.1 MG/DL (0.0-0.2); BILIRUBIN,TOTAL 0.4 MG/DL (0.2-1.0); LIPASE 95 U/L (73-393)
[2022-06-04 17:34] LABS: HCG, SERUM QUANTITATIVE 66618 MIU/ML
[2022-06-04 20:11] LABS: GC DNA AMPLIFICATION NEGATIVE (NEGATIVE)
[2022-06-04 20:26] VITALS: BP 126/62
== END 2022-06-04 20:27 | disposition home or self-care (01) ==
LOC: M ED 14:06
DX: O9A.211 Injury, poisoning and certain other consequences of external causes complicating pregnancy, first trimester (principal); R10.31 Right lower quadrant pain; R10.32 Left lower quadrant pain; Z3A.08 8 weeks gestation of pregnancy